=== PATIENT | female | born 1930 | race Caucasian/White ===

== ENCOUNTER 2017-05-17 19:31 | Emergency (ER) | payer MEDICARE, BC ==
[~2017-05-17] VITALS: Ht 147.3 cm; Wt 63.5 kg
[2017-05-17] MEDS ORDERED: METO25TA3 PO (20:13)
[2017-05-17] MEDS ORDERED: ESCI10TA PO (20:13)
[2017-05-17] MEDS ORDERED: ESOM40CA PO (20:13)
[2017-05-17] MEDS ORDERED: PRED2.5T PO (20:13)
[2017-05-17] MEDS ORDERED: MORPHINE SULFATE 4 MG/1 ML DISP.SYRIN IM ONE ×2 (20:30→23:15)
[2017-05-17] MEDS ORDERED: NEOMY/BACITRA/POLYMYXIN B OINT UD PACKET TP ONE ×2 (20:30→20:42)
[2017-05-17] MEDS ORDERED: ONDANSETRON 4 MG/2 ML VIAL IM ONE ×2 (20:30→23:15)
[2017-05-17] MEDS ORDERED: MORPHINE SULFATE 4 MG/1 ML DISP.SYRIN ONE ×2 (20:42→23:25)
[2017-05-17] MEDS ORDERED: ONDANSETRON 4 MG/2 ML VIAL ONE ×2 (20:42→23:25)
--- NOTE | 2017-05-17 20:45 | NUR ---
Pt seen by . Pt medic[facility] Will monitor for effects of medication. Pt resting in position of comfort for self. Awaiting xrays.
--- NOTE | 2017-05-17 21:30 | NUR ---
Pt resting in position of comfort for self. Xrays obtained. Pt c/o pain with movement but denies pain at rest. Pt denies need for further medication at this time.
--- NOTE | 2017-05-17 22:30 | NUR ---
Face sheet faxed to [facility] for transfer. Kylah with transfer center called and confirmed Dr. Benites accepted the pt. Room assignment 410.
--- NOTE | 2017-05-17 23:25 | NUR ---
Splint applied to Right elbow. Pos CMS s/p application. Sling applied. Pt medicated for increased pain, will monitor for effects of medication. Pt repositioned for comfort. Addendum: 05/18/17 at 0026 by DAVE Two attempts made for IV insertion, unsuccessful. Pt refused further attempts. Requested pain medication IM
--- NOTE | 2017-05-17 23:33 | NUR ---
CALLED MED RESPONSE SPOKE WITH BEN. ARIZA SONG LYRICIST IS 45MINS
--- NOTE | 2017-05-18 00:24 | NUR ---
[facility] transport at bedside. Report called to CHARLENE Chamorro. Pt moved to ambulance [facility] at this time
== END 2017-05-18 00:31 | disposition short-term general hospital (02) ==
LOC: ER 19:36
DX: S52.021A Displaced fracture of olecranon process without intraarticular extension of right ulna, initial encounter for closed fracture (principal); K21.9 Gastro-esophageal reflux disease without esophagitis; I10 Essential (primary) hypertension; F41.9 Anxiety disorder, unspecified; F32.9 Major depressive disorder, single episode, unspecified; C56.9 Malignant neoplasm of unspecified ovary; M06.9 Rheumatoid arthritis, unspecified; Z88.8 Allergy status to other drugs, medicaments and biological substances; Z88.0 Allergy status to penicillin; W18.30XA Fall on same level, unspecified, initial encounter; Y93.89 Activity, other specified; Y99.8 Other external cause status; Y92.89 Other specified places as the place of occurrence of the external cause
CPT/HCPCS: 29105; 73080; 96372 ×4; 99285; A4663; J2270 ×2; J2405 ×2

== ENCOUNTER 2018-01-18 12:44 | Inpatient (IN) | payer MEDICARE, BC ==
[~2018-01-18] VITALS: Ht 142.2 cm; Wt 49.9 kg
[~2018-01-18 12:44] MED LIST: ESCI10TA PO; ESOM40CA PO; METO25TA3 PO; PRED2.5T PO
--- NOTE | 2018-01-18 12:52 | NUR ---
Pt.was seen by .
--- NOTE | 2018-01-18 13:08 | NUR ---
PT DOES NOT REMEMBER NAMES AND DOSAGES OF HER HOME MEDICATION.
[2018-01-18] MEDS ORDERED: IV NORMAL SALINE 1000 ML BAG IV ONE (13:15)
[2018-01-18 13:35] LABS: BASOPHILS % (AUTO) 0.6 % (0.0-2.0); EOSINOPHILS # (AUTO) 0.1 K/uL (0.0-0.7); EOSINOPHILS % (AUTO) 1.9 % (0.0-7.0); HEMATOCRIT 34.2 % (31.2-41.9); LYMPHOCYTES # (AUTO) 0.6 K/uL (20.0-40.0); LYMPHOCYTES % (AUTO) 14.9 % (20.5-51.5); MEAN CORPUSCULAR HEMOGLOBIN 30.3 uug (24.7-32.8); MEAN CORPUSCULAR HGB CONC 32 g/dL (32.3-35.6); MONOCYTES # (AUTO) 0.4 K/uL (2.0-10.0); MONOCYTES % (AUTO) 9.7 % (0.0-11.0); NEUTROPHILS # (AUTO) 2.9 K/uL (1.8-8.9); NEUTROPHILS % (AUTO) 72.9 % (38.5-71.5); PLATELET COUNT (AUTO) 169 K/uL (179-408); RED BLOOD CELL COUNT(AUTO) 3.64 MIL/uL (3.63-4.92)
--- NOTE | 2018-01-18 13:36 | NUR ---
Daughter at bedside, updated with pt. condition and plan of care.
[2018-01-18 13:51] LABS: CARBON DIOXIDE 25 mmol/L (21-32); CHLORIDE 100 mmol/L (98-107); CREATININE 1.4 mg/dL (0.6-1.3); GLUCOSE 93 mg/dL (74-106); UREA NITROGEN, BLOOD 23 mg/dL (7-18)
[2018-01-18 13:56] LABS: ALANINE AMINOTRANSFERASE 20 U/L (14-59); ALKALINE PHOSPHATASE 77 U/L (50-136); ASPARTATE AMINOTRANSFERASE 28 U/L (15-37); BILIRUBIN,DIRECT 0.1 mg/dL (0.0-0.2); BILIRUBIN,TOTAL 0.5 mg/dL (0.2-1.0); TOTAL PROTEIN, SERUM 7.6 g/dL (6.4-8.2)
[2018-01-18] MEDS ORDERED: POTASSIUM CHLORIDE 20 MEQ TAB.PRT.SR ONE (14:20)
[2018-01-18] MEDS ORDERED: POTASSIUM CHLORIDE 20 MEQ TAB.PRT.SR PO ONE (14:30)
--- NOTE | 2018-01-18 14:35 | NUR ---
Pt.will be admited to m/s floor.SBAR report given to Ruby/CHARLENE.
[2018-01-18] MEDS ORDERED: IV NS 1000 ML 1,000 ML IV PRN (14:42)
[2018-01-18] MEDS ORDERED: ACETAMINOPHEN 325 MG TABLET PO PRN ×2 (14:45→15:45)
[2018-01-18] MEDS ORDERED: INSULIN REGULAR, HUMAN 300 UNIT/3 ML VIAL SQ PRN ×2 (14:45→15:45)
[2018-01-18] MEDS ORDERED: HYDROCODONE/APAP 5-325MG TABLET PO PRN ×2 (14:45→15:45)
[2018-01-18] MEDS ORDERED: Z GUARD REMEDY PASTE 57 GM TUBE TOP PRN ×2 (14:45→15:45)
[2018-01-18] MEDS ORDERED: MAGNESIUM HYDROXIDE 30 ML LIQUID UDC PO PRN ×2 (14:45→15:45)
[2018-01-18] MEDS ORDERED: DEXTROSE 50% 50 ML DISP.SYRIN IV PRN ×2 (14:45→15:45)
[2018-01-18] MEDS ORDERED: ONDANSETRON 4 MG/2 ML VIAL IV PRN ×2 (14:45→15:45)
[2018-01-18] MEDS ORDERED: INSULIN REGULAR, HUMAN 300 UNITS/3 ML VIAL SQ PRN ×2 (14:45→15:45)
--- NOTE | 2018-01-18 15:16 | NUR ---
Pt.went to bathroom,tolerated well,denies any dizziness,c/o on gener.weakness.
--- NOTE | 2018-01-18 15:38 | NUR ---
Pt.was Tx.to M/S floor SBAR report updated at bedside.
[2018-01-18 16:28] VITALS: BP 154/66
[2018-01-18] MEDS ORDERED: BLOOD SUGAR DIAGNOSTIC 1 EACH STRIP VI SCH (16:30)
[2018-01-18] MEDS: BLOOD SUGAR DIAGNOSTIC 1 EACH STRIP VI SCH ×2 (16:44→20:49)
--- NOTE | 2018-01-18 16:44 | NUR ---
PTS BS 66, ORANGE JUICE WITH 2 SUGAR PACKETS GIVEN. WILL CONTINUE TO MONITOR
[2018-01-18] MEDS: IV NS 1000 ML 1,000 ML IV PRN (16:45)
--- NOTE | 2018-01-18 17:35 | NUR ---
Pt in bed, ate dinner, does not want to remove pants or shoes. IV intact and infusing well. belongings list complete, VSS, pt had 1 episode diarrhea, denies dizziness nausea or abdominal pain. Call light in reach
--- NOTE | 2018-01-18 19:15 | NUR ---
Pt awake, alert, oriented x4. Pt has daughter at bedside. Pt Iv intact and patent. Call light within reach.
[2018-01-18 20:00] VITALS: BP 134/53
--- NOTE | 2018-01-18 20:30 | NUR ---
Blood sugar level is 84.Pt went to visit her at 203. Pt vital signs stable. Call light within reach. Will continue to monitor.
[2018-01-18] MEDS ORDERED: METOPROLOL SUCCINATE XL 25 MG TAB.SR.24H PO SCH (21:00)
[2018-01-19 05:14] VITALS: BP 134/53
--- NOTE | 2018-01-19 05:26 | NUR ---
PT SLEPT THROUGHOUT THE SHIFT. PT SHOWS NO SIGNS OF DISTRESS. PT VITAL SIGNS WITHIN NORMAL LIMIT. PT IV INTACT AND PATENT. CALL LIGHT WITHIN REACH. PRESCRIBED MEDICATION GIVEN AND PT TOLERATED IT WELL. PT DOESN'T LIKE TO TAKE OFF HER PANTS. SAFETY AND COMFORT PROVIDED. CONTINUE CARE PLAN . WILL ENDORSE TO DAYSHIFT NURSE.
[2018-01-19] MEDS: BLOOD SUGAR DIAGNOSTIC 1 EACH STRIP VI SCH ×3 (06:43→12:02)
[2018-01-19] MEDS: IV NS 1000 ML 1,000 ML IV PRN (06:48)
--- NOTE | 2018-01-19 06:56 | NUR ---
BLOOD SUGAR THAT i GOT FIRST WAS 69 . I GAVE ORANGE JUICE TO THE PT. I RECHECKED IT AGAIN AND ITS 81 NOW. WILL ENDORSE TO DAYSHIFT NURSE.
[2018-01-19] MEDS ORDERED: PANTOPRAZOLE SODIUM 40 MG TABLET.DR PO SCH ×2 (07:00)
--- NOTE | 2018-01-19 07:22 | NUR ---
Received client in bed sleeping in a semi fowlers position but easily arousable to name. No apparent s/s of pain, distress, discomfort or SOB. Hydration running at this time, bed at lowest position for safety and call light within reach for assistance.
[2018-01-19] MEDS ORDERED: ESCITALOPRAM OXALATE 10 MG TABLET PO SCH (09:00)
--- NOTE | 2018-01-19 09:40 | NUR ---
Client states she wants to be discharged today and is voicing for her discharge as well. She states that tomorrow will be raining and that the daughters are working and today in the afternoon would be ideal to get discharge back home. She states that her feels well, with no diarrhea and that he will see his primary dr tomorrow.
--- NOTE | 2018-01-19 10:15 | NUR ---
aware of clients wishes of getting discharged today as well as her . Informed the 's nurse about my client's request for her as well as her request for her 's discharge
[2018-01-19 11:15] VITALS: BP 123/65
--- NOTE | 2018-01-19 11:17 | NUR ---
Auuc Ck results of 62, charge nurse aware, orange juice given, client is under no distress or discomfort, alert and oriented times 3-4. No s/s of hypoglycemic event. Second cup of OJ given.
--- NOTE | 2018-01-19 12:43 | NUR ---
Client discharged home with orders from MD as requested by client. Client is in stable condition with no apparent s/s of SOB,pain, distress or discomfort. Client second Accu ck was 106, logged in. All discharge papers signed and accounted for. V/S stable. Client was guided down to lobby with her and other RN. Both patients were seen getting into a car being driven by their daughter. IV line removed as well as the ID band.
== END 2018-01-19 12:30 | disposition home or self-care (01) | DRG 641 ==
LOC: ER 12:44 → MED 15:43
PROVIDERS: ADMIT Internal Medicine; ATTEND Internal Medicine
DX: E86.0 Dehydration (principal); K52.9 Noninfective gastroenteritis and colitis, unspecified; E87.2 Acidosis; M06.9 Rheumatoid arthritis, unspecified; Z85.43 Personal history of malignant neoplasm of ovary; K21.9 Gastro-esophageal reflux disease without esophagitis; F41.9 Anxiety disorder, unspecified; F32.9 Major depressive disorder, single episode, unspecified; Z88.0 Allergy status to penicillin; Z88.2 Allergy status to sulfonamides; I10 Essential (primary) hypertension; K29.00 Acute gastritis without bleeding
CPT/HCPCS: 36415; 70030-TC; 71045; 83605; 85025; 85730; 87040; 93005; A4663; J1815; J7030; J7050

== ENCOUNTER 2018-08-20 00:42 | Inpatient (IN) | payer MEDICARE, BC ==
[~2018-08-20] VITALS: Ht 157.5 cm; Wt 56.2 kg
[2018-08-20] MEDS ORDERED: ONDANSETRON 4 MG/2 ML VIAL IV ONE (00:45)
[2018-08-20] MEDS ORDERED: METOCLOPRAMIDE HCL 10 MG/2 ML VIAL ONE (00:57)
[2018-08-20] MEDS ORDERED: diphenhydrAMINE 50 MG/1 ML VIAL ONE (00:57)
[2018-08-20] MEDS ORDERED: IV NORMAL SALINE 1000 ML BAG IV ONE (01:00)
[2018-08-20] MEDS ORDERED: diphenhydrAMINE 50 MG/1 ML VIAL IV ONE (01:00)
[2018-08-20] MEDS ORDERED: METOCLOPRAMIDE HCL 10 MG/2 ML VIAL IV ONE (01:00)
[2018-08-20] MEDS ORDERED: LORAZEPAM 2 MG/1 ML VIAL ONE (01:42)
[2018-08-20] MEDS ORDERED: LORAZEPAM 2 MG/1 ML VIAL IV ONE (01:45)
[2018-08-20] MEDS ORDERED: ONDANSETRON 4 MG/2 ML VIAL ONE (01:46)
[2018-08-20 01:49] LABS: BASOPHILS % (AUTO) 0.9 % (0.0-2.0); EOSINOPHILS % (AUTO) 0.4 % (0.0-7.0); LYMPHOCYTES # (AUTO) 0.5 K/uL (20.0-40.0); LYMPHOCYTES % (AUTO) 9.4 % (20.5-51.5); MEAN CORPUSCULAR HEMOGLOBIN 33.4 uug (24.7-32.8); MEAN CORPUSCULAR HGB CONC 34 g/dL (32.3-35.6); MEAN CORPUSCULAR VOLUME 97.1 fL (75.5-95.3); MONOCYTES # (AUTO) 0.3 K/uL (2.0-10.0); MONOCYTES % (AUTO) 5.5 % (0.0-11.0); NEUTROPHILS # (AUTO) 4.5 K/uL (1.8-8.9); NEUTROPHILS % (AUTO) 83.8 % (38.5-71.5); PLATELET COUNT (AUTO) 227 K/uL (179-408); RED BLOOD CELL COUNT(AUTO) 2.98 MIL/uL (3.63-4.92); WHITE BLOOD COUNT (AUTO) 5.3 K/uL (3.8-11.8)
[2018-08-20] MEDS ORDERED: PANT40TA2 PO (01:58)
[2018-08-20] MEDS ORDERED: METH25VI11 SQ (01:58)
--- NOTE | 2018-08-20 01:58 | NUR ---
PT UNABLE TO REMEMBER ALL OF HER MEDS,AND DOESN'T HAVE THE LIST.WILL BRING IN AM
[2018-08-20 02:08] LABS: ALANINE AMINOTRANSFERASE 18 U/L (14-59); ALKALINE PHOSPHATASE 84 U/L (50-136); ASPARTATE AMINOTRANSFERASE 27 U/L (15-37); BILIRUBIN,DIRECT 0.3 mg/dL (0.0-0.2); BILIRUBIN,TOTAL 0.8 mg/dL (0.2-1.0); CARBON DIOXIDE 21 mmol/L (21-32); CHLORIDE 86 mmol/L (98-107); CREATININE 1.3 mg/dL (0.6-1.3); GLUCOSE 144 mg/dL (74-106); POTASSIUM 3.1 mmol/L (3.5-5.1); TOTAL PROTEIN, SERUM 6.8 g/dL (6.4-8.2); UREA NITROGEN, BLOOD 27 mg/dL (7-18)
[2018-08-20] MEDS ORDERED: IV NS 1000 ML 1,000 ML IV ONE (02:30)
[2018-08-20 02:33] LABS: LIPASE 139 U/L (73-393)
[2018-08-20] MEDS ORDERED: IOHEXOL 350 100 ML INFUS..BTL ONE ×2 (02:36→02:38)
[2018-08-20] MEDS ORDERED: SWABABLE VALVE TRANSFER SET EA MC ONE (02:36)
[2018-08-20] MEDS ORDERED: IV NORMAL SALINE 250 ML IV ONE (02:36)
[2018-08-20] MEDS ORDERED: NORMAL SALINE FLUSH 10 ML DISP.SYRIN ONE ×2 (02:36→02:37)
[2018-08-20] MEDS ORDERED: ACETAMINOPHEN 325 MG TABLET PO PRN (04:45)
[2018-08-20] MEDS ORDERED: MAGNESIUM HYDROXIDE 30 ML LIQUID UDC PO PRN (04:45)
[2018-08-20] MEDS ORDERED: HYDROCODONE/APAP 5-325MG TABLET PO PRN ×2 (04:45→14:15)
[2018-08-20] MEDS ORDERED: Z GUARD REMEDY PASTE 57 GM TUBE TOP PRN (04:45)
[2018-08-20] MEDS ORDERED: ONDANSETRON 4 MG/2 ML VIAL IV PRN (04:45)
--- NOTE | 2018-08-20 05:12 | NUR ---
MSE COMPLETED, MEDS ADMIN, PT RESTING, MONITOR SHOWS SINUS ZULY. PT TO GO TO [facility]. NO STAFF PER EPI RN-CHARGE NURSE. PT TO BE TRANSFERED NEXT SHIFT. BELONGINGS LIST DONE. PT POSITIONED FOR COMFORT.
[2018-08-20 06:03] LABS: *BILIRUBIN,URIN NEGATIVE (NEGATIVE); *BLOOD, URINE Trace-intact (NEGATIVE); *CLARITY,URINE CLEAR (CLEAR); *COLOR,URINE LIGHT YELLOW (YELLOW); *KETONES,URINE NEGATIVE (NEGATIVE); *PROTEIN,URINE NEGATIVE (NEGATIVE); *UROBILINOGEN,URINE 0.2 E.U./dl (NORMAL); LEUKOCYTE ESTERASE ,URINE NEGATIVE (NEGATIVE); NITRITE, URINE NEGATIVE (NEGATIVE); UGLUCOSE NEGATIVE (NEGATIVE)
[2018-08-20 06:15] LABS: BACTERIA,URINE FEW /HPF (NONE SEEN); RBC,URINE 0-3 /HPF (0-3); SQUAMOUS EPITHELIAL CELL,UR FEW /HPF (NONE SEEN); WBC,URINE 0-3 /HPF (0-3)
--- NOTE | 2018-08-20 06:58 | NUR ---
PT SLEEPING,MONITOR SHOWS SINUS ZULY AT 45, PO2 ON ROOMAIR =98%, PT AWAITING FOR AM SHIFT FOR [facility] RN TO ACCEPT. SBAR REPORT TO LACIE CHANG.
--- NOTE | 2018-08-20 08:17 | NUR ---
REPORT GIVEN TO RN [facility]. PT WAS TRANSFERED TO [facility] ROOM #205.
[2018-08-20 08:41] VITALS: BP 139/60
--- NOTE | 2018-08-20 09:00 | NUR ---
Received patient from ER. Patient vitals recorded, pictures taken, and patient oriented to unit. Bed in low position, side rails up x2, bed alarm on.
[2018-08-20] MEDS ORDERED: POTASSIUM CHLORIDE 20 MEQ TAB.PRT.SR PO ONE (10:00)
[2018-08-20 11:00] VITALS: BP 141/66
[2018-08-20 11:03] LABS: *BILIRUBIN,URIN NEGATIVE (NEGATIVE); *BLOOD, URINE NEGATIVE (NEGATIVE); *CLARITY,URINE CLEAR (CLEAR); *COLOR,URINE YELLOW (YELLOW); *KETONES,URINE NEGATIVE (NEGATIVE); *PROTEIN,URINE NEGATIVE (NEGATIVE); *UROBILINOGEN,URINE 0.2 E.U./dl (NORMAL); LEUKOCYTE ESTERASE ,URINE NEGATIVE (NEGATIVE); NITRITE, URINE NEGATIVE (NEGATIVE); UGLUCOSE NEGATIVE (NEGATIVE)
[2018-08-20] MEDS: IV NS 1000 ML 1,000 ML IV PRN ×2 (11:05→21:58)
[2018-08-20 11:06] LABS: BACTERIA,URINE FEW /HPF (NONE SEEN); RBC,URINE 0-3 /HPF (0-3); SQUAMOUS EPITHELIAL CELL,UR FEW /HPF (NONE SEEN); WBC,URINE 0-3 /HPF (0-3)
[2018-08-20 11:10] LABS: *CREATININE,URINE 18.7 mg/dL (30-125)
[2018-08-20 11:23] VITALS: BP 145/66
[2018-08-20 14:29] LABS: CARBON DIOXIDE 29 mmol/L (21-32); CHLORIDE 95 mmol/L (98-107); CREATININE 1.1 mg/dL (0.6-1.3); GLUCOSE 92 mg/dL (74-106); POTASSIUM 3.4 mmol/L (3.5-5.1); UREA NITROGEN, BLOOD 21 mg/dL (7-18)
[2018-08-20 16:13] VITALS: BP 124/50
--- NOTE | 2018-08-20 18:10 | NUR ---
Patient has been cooperative with care, all needs met. BP within normal limits. No distress noted throughout shift, bed in low position, side rails up x2. Bed alarm on.
[2018-08-20 19:00] VITALS: BP 104/38
--- NOTE | 2018-08-20 19:20 | NUR ---
Received patient lying in bed. AAOx4. in no acute distress. Denies any pain or SOB. On O2 at 2LPM via NC in place. IV site on left wrist intact and patent. IVF infusing. Sinus Sebastien on tele at 47/min. Needs assessed and attended to. Safety measure initiated and call barrett within reach.
[2018-08-20 20:48] VITALS: BP 127/53
--- NOTE | 2018-08-20 20:48 | NUR ---
@1900 BP WAS 104/39, HR 49. ROUTINE TOPROL HELD DUE TO DECREASE BP. RECHECK BP NAD HR NOW, BP 127/53, HR 51. PATIENT REMAINS AOX4. DENIES ANY HEADACHE, CHANGE OF VISION OR DIZZINESS. WILL CONTINUE TO MONITOR.
[2018-08-20] MEDS ORDERED: METOPROLOL SUCCINATE XL 25 MG TAB.SR.24H PO SCH (21:00)
--- NOTE | 2018-08-20 21:56 | NUR ---
CORRINE PASTRANA WITH ORDER TO DISCONTINUE TELE AND TRANSFER PATIENT TO MED SURG. ORDER CARRIED OUT.
[2018-08-21 04:00] VITALS: BP 143/55
--- NOTE | 2018-08-21 06:06 | NUR ---
AAOx4. in no acute distress. Denies any pain or SOB. On O2 at 2LPM via NC in place. O2 sat at 98%. IV site on left wrist intact and patent. IVF infusing. Needs attended to and met. Sling on right elbow in place. Safety measure maintained and call barrett within reach.
[2018-08-21] MEDS ORDERED: PANTOPRAZOLE SODIUM 40 MG TABLET.DR PO SCH (07:00)
[2018-08-21 07:27] LABS: ALANINE AMINOTRANSFERASE 15 U/L (14-59); ALKALINE PHOSPHATASE 74 U/L (50-136); ASPARTATE AMINOTRANSFERASE 19 U/L (15-37); BILIRUBIN,TOTAL 0.5 mg/dL (0.2-1.0); CARBON DIOXIDE 27 mmol/L (21-32); CHLORIDE 105 mmol/L (98-107); CREATININE 0.9 mg/dL (0.6-1.3); GLUCOSE 78 mg/dL (74-106); MAGNESIUM 1.4 mg/dL (1.8-2.4); PHOSPHOROUS 2.3 mg/dL (2.5-4.9); POTASSIUM 3.8 mmol/L (3.5-5.1); TOTAL PROTEIN, SERUM 6.2 g/dL (6.4-8.2); UREA NITROGEN, BLOOD 19 mg/dL (7-18)
[2018-08-21 07:38] LABS: BASOPHILS % (AUTO) 0.9 % (0.0-2.0); EOSINOPHILS # (AUTO) 0.2 K/uL (0.0-0.7); EOSINOPHILS % (AUTO) 4.2 % (0.0-7.0); HEMATOCRIT 29.6 % (31.2-41.9); LYMPHOCYTES # (AUTO) 1.1 K/uL (20.0-40.0); LYMPHOCYTES % (AUTO) 26.9 % (20.5-51.5); MEAN CORPUSCULAR HEMOGLOBIN 34.1 uug (24.7-32.8); MEAN CORPUSCULAR HGB CONC 34 g/dL (32.3-35.6); MEAN CORPUSCULAR VOLUME 100.6 fL (75.5-95.3); MONOCYTES # (AUTO) 0.4 K/uL (2.0-10.0); MONOCYTES % (AUTO) 10.6 % (0.0-11.0); NEUTROPHILS # (AUTO) 2.3 K/uL (1.8-8.9); NEUTROPHILS % (AUTO) 57.4 % (38.5-71.5); PLATELET COUNT (AUTO) 249 K/uL (179-408); RED BLOOD CELL COUNT(AUTO) 2.94 MIL/uL (3.63-4.92)
[2018-08-21] MEDS ORDERED: ESCITALOPRAM OXALATE 10 MG TABLET PO SCH (09:00)
--- NOTE | 2018-08-21 09:00 | NUR ---
PATIENT REFUSED TO HAVE THE WOUND OPENED STATED THAT WE ALREADY HAVE A PICTURE STATED THAT SHE HAS AN APPOINTMENT WITH THE WOUND CARE DOCTOR AND ONLY HIM CAN CHANGE THE DRESSING PATIENTS RIGHT TO REFUSE RESPECTED AT THIS TIME.
[2018-08-21] MEDS ORDERED: MAGNESIUM SULFATE/D5W 100 ML IV SCH (09:30)
--- NOTE | 2018-08-21 10:00 | NUR ---
DR SCHULTZ HERE TO SEE PATIENT WITH NEW ORDERS AND NOTED PHOS LEVEL IS 2.3 AND MAG IS 1.4
[2018-08-21] MEDS ORDERED: POTASSIUM PHOSPHATE MM 5 MMOL in IV DEXTROSE 5% 100 ML IV SCH (11:00)
[2018-08-21 11:16] VITALS: BP 137/59
[2018-08-21] MEDS ORDERED: NEUTRA PHOS PACKET PO ONE (11:45)
--- NOTE | 2018-08-21 11:48 | NUR ---
ORDER TO CANCEL KPHOS AND INSTEAD GIVE KER NEUTROPHOS RECEIVED FROM AQUILINO CASTLE AND NOTED.
--- NOTE | 2018-08-21 13:20 | NUR ---
PATIENT DISCHARGED PICKED UP BY HER NELLA IN SATISFACTORY CONDITION WITH DISCHARGE INSTRUCTIONS PATIENT STATED WILL FOLLOW UP WITH DR MARTÍNEZ TODAY AND WILL ALSO GO TO THE WOUND CLINIC FOR CHANGE OF THE WOUND ON HER ARM AND LEG STATED HAS APPOINTMENT ON TUESDAY RIGHT ARM SLING INTACT WITH ADEQUATE CIRCULATION NOT IN DISTRESS AT THIS TIME
== END 2018-08-21 13:20 | disposition home or self-care (01) | DRG 640 ==
LOC: ER 00:44 → TELE-TD 07:05 → TELE 15:18 → MED 23:17
PROVIDERS: ADMIT Internal Medicine; ATTEND Nurse Practitioner Acute Care
DX: E86.9 Volume depletion, unspecified (principal); G93.41 Metabolic encephalopathy; E44.0 Moderate protein-calorie malnutrition; I16.9 Hypertensive crisis, unspecified; J84.9 Interstitial pulmonary disease, unspecified; E87.1 Hypo-osmolality and hyponatremia; R11.2 Nausea with vomiting, unspecified; T36.8X5A Adverse effect of other systemic antibiotics, initial encounter; Y92.019 Unspecified place in single-family (private) house as the place of occurrence of the external cause; M06.9 Rheumatoid arthritis, unspecified; K21.9 Gastro-esophageal reflux disease without esophagitis; Z79.899 Other long term (current) drug therapy; I11.9 Hypertensive heart disease without heart failure; K29.70 Gastritis, unspecified, without bleeding; K57.30 Diverticulosis of large intestine without perforation or abscess without bleeding; M47.814 Spondylosis without myelopathy or radiculopathy, thoracic region; E87.6 Hypokalemia; Z90.710 Acquired absence of both cervix and uterus; Z90.49 Acquired absence of other specified parts of digestive tract; Z68.22 Body mass index [BMI] 22.0-22.9, adult; E87.2 Acidosis; S42.401D Unspecified fracture of lower end of right humerus, subsequent encounter for fracture with routine healing; W19.XXXD Unspecified fall, subsequent encounter; J44.9 Chronic obstructive pulmonary disease, unspecified; K44.9 Diaphragmatic hernia without obstruction or gangrene; D53.1 Other megaloblastic anemias, not elsewhere classified; Z88.0 Allergy status to penicillin; Z88.2 Allergy status to sulfonamides; Z87.440 Personal history of urinary (tract) infections; Z85.43 Personal history of malignant neoplasm of ovary; F41.8 Other specified anxiety disorders
CPT/HCPCS: 36415; 70030-TC; 71045; 71275; 82533; 83605; 83690; 83735; 84100; 84156; 84295; 84300; 84443; 85025; 85730; 87040; 87086; 93005; A4663; J1200; J2060; J2405; J2765; J3475; J3490; J7030; J7050; J7060; Q9967

== ENCOUNTER 2019-04-25 17:55 | Inpatient (IN) | payer MEDICARE, BC ==
[~2019-04-25] VITALS: Ht 144.8 cm; Wt 61.2 kg
[~2019-04-25 17:55] MED LIST changes: -ESOM40CA PO; +METH25VI11 SQ; +PANT40TA2 PO; -PRED2.5T PO
--- NOTE | 2019-04-25 18:00 | NUR ---
HUBER ESPITIA AT BEDSIDE FOR MSE.
--- NOTE | 2019-04-25 18:02 | NUR ---
PT IS A/OX4, BIB [facility]. 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 PT REPORTS SHE STRUCK A PLANT POT DURING THE FALL W/ HER POSTERIOR R RIBCAGE. PT DENIES HEAD INJURY/LOC. PT REPORTS SHE WAS UNABLE TO AMBULATE FOLLOWING THE [facility]. UPON ASSESSMENT, THERE IS A SKIN TEAR ON THE R ELBOW, AND ABRASION W/ BRUISING ON THE R POSTERIOR RIBCAGE. PT C/O PAIN IN R LOWER BACK, R ELBOW, AND R ANKLE. PAIN IS PROVOKED UPON MOVEMENT, SHARP IN QUALITY, DOES NOT RADIATE, 9/10, CONSTANT. NO OBVIOUS DEFORMITY TO THE EXTREMITIES. VS WNL. PT DENIES C/P, SOB, N/V/D, DIZZINESS, HEADACHE.
[2019-04-25] MEDS ORDERED: MORPHINE SULFATE 2 MG/1 ML DISP.SYRIN IV ONE (18:15)
[2019-04-25] MEDS ORDERED: PRED2.5T PO (18:18)
[2019-04-25] MEDS ORDERED: DEXL60CA3 PO (18:18)
[2019-04-25] MEDS ORDERED: CYAN50008 PO (18:18)
--- NOTE | 2019-04-25 18:22 | NUR ---
FARM HAND AT BEDSIDE.
[2019-04-25 18:24] LABS: BASOPHILS # (AUTO) 0.1 K/uL (0.0-8.0); EOSINOPHILS % (AUTO) 0.4 % (0.0-7.0); HEMATOCRIT 34.3 % (31.2-41.9); LYMPHOCYTES # (AUTO) 0.6 K/uL (20.0-40.0); LYMPHOCYTES % (AUTO) 12.6 % (20.5-51.5); MEAN CORPUSCULAR HEMOGLOBIN 31.1 uug (24.7-32.8); MEAN CORPUSCULAR HGB CONC 32 g/dL (32.3-35.6); MEAN CORPUSCULAR VOLUME 96.8 fL (75.5-95.3); MONOCYTES # (AUTO) 0.3 K/uL (2.0-10.0); MONOCYTES % (AUTO) 6.6 % (0.0-11.0); NEUTROPHILS # (AUTO) 4.1 K/uL (1.8-8.9); NEUTROPHILS % (AUTO) 79.4 % (38.5-71.5); PLATELET COUNT (AUTO) 214 K/uL (179-408); RED BLOOD CELL COUNT(AUTO) 3.54 MIL/uL (3.63-4.92); WHITE BLOOD COUNT (AUTO) 5.1 K/uL (3.8-11.8)
[2019-04-25] MEDS ORDERED: MORPHINE SULFATE 2 MG/1 ML DISP.SYRIN ONE (18:26)
[2019-04-25 18:30] LABS: CARBON DIOXIDE 31 mmol/L (21-32); CHLORIDE 102 mmol/L (98-107); GLUCOSE 102 mg/dL (74-106); POTASSIUM 3.4 mmol/L (3.5-5.1); UREA NITROGEN, BLOOD 34 mg/dL (7-18)
--- NOTE | 2019-04-25 19:18 | NUR ---
SHIFT REPORT GIVEN TO JUSTIN Davidson RN.
--- NOTE | 2019-04-25 19:23 | NUR ---
PATIENT RETURNED FROM CT SCAN, RESTING COMFORTABLY.
--- NOTE | 2019-04-25 19:58 | NUR ---
RIGHT ELBOW CLEANSED WITH NORMAL SALINE AND STERI STRIPS APPLIED.
[2019-04-25] MEDS ORDERED: MORPHINE SULFATE 4 MG/1 ML DISP.SYRIN IV ONE (21:00)
[2019-04-25] MEDS ORDERED: MORPHINE SULFATE 4 MG/1 ML DISP.SYRIN ONE (21:04)
--- NOTE | 2019-04-25 21:12 | NUR ---
Pt. admitted to [facility] , under care of Dr. RUIZ Belongs List completed.
--- NOTE | 2019-04-25 22:05 | NUR ---
Received pt. from ER.
[2019-04-25 22:30] VITALS: BP 134/61
[2019-04-25] MEDS ORDERED: IV NS 1000 ML 1,000 ML IV PRN (23:04)
[2019-04-25] MEDS ORDERED: ONDANSETRON 4 MG/2 ML VIAL IV PRN (23:15)
[2019-04-25] MEDS ORDERED: HYDROCODONE/APAP 5-325MG TABLET PO PRN (23:15)
[2019-04-25] MEDS ORDERED: MAGNESIUM HYDROXIDE 30 ML LIQUID UDC PO PRN (23:15)
[2019-04-25] MEDS ORDERED: ACETAMINOPHEN 325 MG TABLET PO PRN (23:15)
[2019-04-25] MEDS ORDERED: Z GUARD REMEDY PASTE 57 GM TUBE TOP PRN (23:15)
[2019-04-25] MEDS ORDERED: ENOXAPARIN SODIUM 40 MG/0.4 ML DISP.SYRIN SQ ONE (23:30)
[2019-04-25] MEDS ORDERED: METOPROLOL SUCCINATE XL 25 MG TAB.SR.24H PO SCH (23:30)
[2019-04-26 01:15] LABS: *BILIRUBIN,URIN NEGATIVE (NEGATIVE); *BLOOD, URINE NEGATIVE (NEGATIVE); *CLARITY,URINE SLIGHTLY CLOUDY (CLEAR); *COLOR,URINE LIGHT YELLOW (YELLOW); *KETONES,URINE NEGATIVE (NEGATIVE); *UROBILINOGEN,URINE 0.2 E.U./dl (NORMAL); LEUKOCYTE ESTERASE ,URINE 2+ (NEGATIVE); NITRITE, URINE NEGATIVE (NEGATIVE); UGLUCOSE NEGATIVE (NEGATIVE)
[2019-04-26 01:26] LABS: BACTERIA,URINE MANY /HPF (NONE SEEN); RBC,URINE 0-3 /HPF (0-3); SQUAMOUS EPITHELIAL CELL,UR FEW /HPF (NONE SEEN); WBC,URINE 20-50 /HPF (0-3)
[2019-04-26 05:08] VITALS: BP 120/53
[2019-04-26] MEDS: MORPHINE SULFATE 2 MG/1 ML DISP.SYRIN IV PRN ×3 (05:39→09:51)
[2019-04-26 06:43] LABS: BASOPHILS % (AUTO) 0.7 % (0.0-2.0); EOSINOPHILS # (AUTO) 0.1 K/uL (0.0-0.7); EOSINOPHILS % (AUTO) 2.1 % (0.0-7.0); HEMATOCRIT 29.9 % (31.2-41.9); HEMOGLOBIN 9.7 g/dL (10.9-14.3); LYMPHOCYTES # (AUTO) 1.1 K/uL (20.0-40.0); LYMPHOCYTES % (AUTO) 20.8 % (20.5-51.5); MEAN CORPUSCULAR HEMOGLOBIN 31.7 uug (24.7-32.8); MEAN CORPUSCULAR HGB CONC 32 g/dL (32.3-35.6); MEAN CORPUSCULAR VOLUME 97.9 fL (75.5-95.3); MONOCYTES # (AUTO) 0.3 K/uL (2.0-10.0); MONOCYTES % (AUTO) 5.7 % (0.0-11.0); NEUTROPHILS # (AUTO) 3.6 K/uL (1.8-8.9); NEUTROPHILS % (AUTO) 70.7 % (38.5-71.5); PLATELET COUNT (AUTO) 191 K/uL (179-408); RED BLOOD CELL COUNT(AUTO) 3.05 MIL/uL (3.63-4.92); WHITE BLOOD COUNT (AUTO) 5.1 K/uL (3.8-11.8)
[2019-04-26 06:59] LABS: CARBON DIOXIDE 32 mmol/L (21-32); CHLORIDE 105 mmol/L (98-107); CHOLESTEROL 175 mg/dL (<200); CREATININE 1.2 mg/dL (0.6-1.3); GLUCOSE 98 mg/dL (74-106); HDL CHOLESTEROL 88 mg/dL (40-60); MAGNESIUM 1.5 mg/dL (1.8-2.4); PHOSPHOROUS 3.3 mg/dL (2.5-4.9); POTASSIUM 3.3 mmol/L (3.5-5.1); TRIGLYCERIDES 65 MG/DL (30-150); UREA NITROGEN, BLOOD 33 mg/dL (7-18)
--- NOTE | 2019-04-26 07:00 | NUR ---
Pt. is alert oriented x4 laying in bed. IV site in right hand patent and intact. Dressing changed on right elbow. Pt. denies any pain or discomfort at this time. Bed locked, 2 side rails up.
[2019-04-26 07:04] LABS: THYROID STIMULATING HORMONE 3.316 mIU/mL (0.358-3.740)
[2019-04-26] MEDS ORDERED: PANTOPRAZOLE SODIUM 40 MG TABLET.DR PO SCH (07:30)
[2019-04-26] MEDS ORDERED: predniSONE 2.5 MG TABLET PO SCH (09:00)
[2019-04-26] MEDS ORDERED: CYANOCOBALAMIN 1,000 MCG TABLET PO SCH (09:00)
[2019-04-26] MEDS ORDERED: ESCITALOPRAM OXALATE 10 MG TABLET PO SCH (09:00)
--- NOTE | 2019-04-26 10:29 | NUR ---
PATIENT IN BED AOX4. PATIENT DENIES PAIN OR DISCOMFORT AT THIS TIME. RT. HAND IV WITH NS AT 50CC/HR. FALL/SAFETY PRECAUTIONS IN PLACE. BED IN LOW POSITION AND LOCKED. CALL LIGHT IN REACH. WILL CONTINUE TO MONITOR.
[2019-04-26] MEDS ORDERED: CEFTRIAXONE 1 G in IV DEXTROSE 5% 50 ML IV SCH (11:00)
[2019-04-26 11:02] VITALS: BP 102/41
[2019-04-26] MEDS ORDERED: POTASSIUM CHLORIDE 20 MEQ TAB.PRT.SR PO ONE (11:45)
[2019-04-26] MEDS ORDERED: MAGNESIUM OXIDE 400 MG TABLET PO ONE (11:45)
--- NOTE | 2019-04-26 14:00 | NUR ---
PATIENT LEFT AMA. AMA FORM SIGNED. PATIENT UNDERSTANDS THAT IT IS NOT RECOMMENDED THAT SHE LEAVES AT THIS TIME BY THE MD AND THE HOSPITAL STAFF. PATIENT LEFT WITH WHO IS HER LIGHT RAIL SIGNAL TECHNICIAN. INCIDENT REPORT WILL BE FILED.
[2019-04-26] MEDS ORDERED: ENOXAPARIN SODIUM 30 MG/0.3 ML DISP.SYRIN SUBCUT SCH (21:00)
[2019-04-26] MEDS ORDERED: ENOXAPARIN SODIUM 40 MG/0.4 ML DISP.SYRIN SQ SCH (21:00)
== END 2019-04-26 14:05 | disposition left against medical advice (07) | DRG 562 ==
LOC: ER 17:57 → MEDSURG3 21:19
PROVIDERS: ADMIT Nurse Practitioner Acute Care; ATTEND Nurse Practitioner Acute Care
DX: S52.121A Displaced fracture of head of right radius, initial encounter for closed fracture (principal); N17.0 Acute kidney failure with tubular necrosis; N39.0 Urinary tract infection, site not specified; M84.459A Pathological fracture, hip, unspecified, initial encounter for fracture; S52.021A Displaced fracture of olecranon process without intraarticular extension of right ulna, initial encounter for closed fracture; E87.6 Hypokalemia; I89.0 Lymphedema, not elsewhere classified; M06.9 Rheumatoid arthritis, unspecified; E83.42 Hypomagnesemia; W01.0XXA Fall on same level from slipping, tripping and stumbling without subsequent striking against object, initial encounter; Y93.H2 Activity, gardening and landscaping; Y92.017 Garden or yard in single-family (private) house as the place of occurrence of the external cause; S51.011A Laceration without foreign body of right elbow, initial encounter; K21.9 Gastro-esophageal reflux disease without esophagitis; Z85.43 Personal history of malignant neoplasm of ovary; Z96.643 Presence of artificial hip joint, bilateral; K59.09 Other constipation; I10 Essential (primary) hypertension; F32.9 Major depressive disorder, single episode, unspecified; M85.80 Other specified disorders of bone density and structure, unspecified site; M77.30 Calcaneal spur, unspecified foot; M51.36 Other intervertebral disc degeneration, lumbar region; Z87.440 Personal history of urinary (tract) infections; Z87.891 Personal history of nicotine dependence; Z90.710 Acquired absence of both cervix and uterus; Z79.899 Other long term (current) drug therapy; Z88.1 Allergy status to other antibiotic agents; Z88.0 Allergy status to penicillin; Z88.2 Allergy status to sulfonamides; R79.89 Other specified abnormal findings of blood chemistry; M25.571 Pain in right ankle and joints of right foot; M25.552 Pain in left hip; M25.551 Pain in right hip; R07.81 Pleurodynia
CPT/HCPCS: 36415; 71101; 72170; 72192; 73070; 73610; 83735; 84100; 84443; 85025; 85730; 87077; 87086; A4663; G0378; J0696; J1650; J2270; J7030; J7060; J7512